=== PATIENT | female | born 1995 | race Caucasian/White ===

== ENCOUNTER 2021-06-17 16:01 | Inpatient (IN) | payer OTHER, SELFPAY ==
[2021-06-17] VITALS (12 sets, daily range): BP systolic 90–147; BP diastolic 55–81; PULSE 82–96; RESP 20; TEMP 36.6
--- OUTSIDE RECORDS SUMMARY | 2021-06-17 16:07 | XMS_ITS | Encounter Summary ---
:1995 Author Care Team Providers Name Role Phone Sonny Byrd MD Senior Instructor [phone] Reason for Visit return OB visit Assessment and Plan 1. Routine care ? streptococcus group B, cul ture, vaginal or rectal Discussion Note: None recorded.Patient educational handouts: No information available. Plan of Care Reminders Provider Appointments None recorded. ? ? Lab Streptococcus [facility], Culture, Vaginal [facility] ([facility] or Rectal Referral None recorded. ? ? Procedures None recorded. ? ? Surgeries None recorded. ? ? Imaging None recorded. ? ? Medications Name Start Date ? ? aspirin 81 mg tablet,delayed release ? Take 1 tablet every day by oral route. magnesium oxide 400 mg (241.3 mg magnesium) tablet ? TAKE 1 TABLET BY MOUTH EVERY DAY riboflavin (vitamin B2) 400 mg tablet ? Take 1 tablet every day by oral route. Notes: PNV; ASA Medications Administered None recorded. Vitals Weight Blood Pressure 342 lbs 122/71 mm[Hg] Results Lab Results Date Name Specimen Result Interpretation Description Value Range Status Address ? 05/21/2021 Streptococcus SOURCE NOT ? Strep Gp negative
--- OUTSIDE RECORDS SUMMARY | 2021-06-17 16:07 | XMS_ITS | Encounter Summary ---
:1995 Author Care Team Providers Name Role Phone Sonny Byrd MD Fisheries Manager [phone] Reason for Visit return OB visit Assessment and Plan 1. Routine care Discussion Note: None recorded.Patient educational handouts: No information available. Plan of Care Reminders Provider Appointments None ? ? recorded. Lab None ? ? recorded. Referral None ? ? recorded. Procedures None ? ? recorded. Surgeries None ? ? recorded. Imaging None ? ? recorded. Medications Name Start Date ? ? aspirin 81 mg tablet,delayed release ? Take 1 tablet every day by oral route. magnesium oxide 400 mg (241.3 mg magnesium) tablet ? TAKE 1 TABLET BY MOUTH EVERY DAY riboflavin (vitamin B2) 400 mg tablet ? Take 1 tablet every day by oral route. Notes: PNV; ASA Medications Administered None recorded. Vitals Height Weight Blood Pressure 5 ft 9 in 326 lbs 118/64 mm[Hg] Results Lab Results None recorded. Allergies Code Code System Name Reaction Severity Onset NKDA ? ? ? Problems Name Status Onset Date Source ?
--- OUTSIDE RECORDS SUMMARY | 2021-06-17 16:07 | XMS_ITS | Encounter Summary ---
:1995 Author Care Team Providers Name Role Phone Sonny Byrd MD Jewelry Facer [phone] Reason for Visit return OB visit Assessment [...] Weight Blood Pressure 5 ft 9 in 339 lbs 126/64 mm[Hg] Results Lab Results None recorded. Allergies Code Code System Name Reaction Severity Onset NKDA ? ? ? Problems Name Status Onset Date Source ?
--- OUTSIDE RECORDS SUMMARY | 2021-06-17 16:07 | XMS_ITS ---
:1995 Author Care Team Providers Name Role Phone LION KUHN MD [employer] Librarian [phone] Allergies Code Code System Name Reaction Severity Status Onset NKDA ? Medications Name Status Start Date Stop Date ? ? aspirin 81 mg tablet,delayed release Active ? Not available Take 1 tablet every day by oral route. cyclobenzaprine 10 mg tablet Completed ? 12/2020 TAKE 1 TABLET BY MOUTH EVERY 8 HOURS NEEDED FOR MUSCLE SPASM docusate sodium 100 mg capsule Completed ? 0 02/10/2021 Take 1 capsule every day by oral route. magnesium oxide 400 mg (241.3 mg magnesium) tablet Active ? Not available TAKE 1 TABLET BY MOUTH EVERY DAY meloxicam 7.5 mg tablet Completed ? 10/30/19 21 TAKE 1 TABLET BY MOUTH EVERY DAY riboflavin (vitamin B2) 400 mg tablet Active ? Not available Take 1 tablet every day by oral route. sulfamethoxazole 800 mg-trimethoprim Completed ? 10/29/2020 160 mg tablet Notes: PNV; ASA Problems Name Status Onset Date Source ? Active 12/02/2020 ? Shoulder Joint Pain Active ? ? Procedures Date Name Performed by ? 10/29/2020 [place], Obstetric, 1St Trimester [facility] (Imaging) [address] [place], [place] [address] (Work [address]) 01/06/2021 [place], Obstetric, Maternal [facility] (Imaging)
--- OUTSIDE RECORDS SUMMARY | 2021-06-17 16:07 | XMS_ITS | Encounter Summary ---
:1995 Author Care Team Providers Name Role Phone Sonny Byrd MD Coding Tech [phone] Reason for Visit return OB visit Assessment [...] Weight Blood Pressure 5 ft 9 in 336 lbs 114/62 mm[Hg] Results Lab Results None recorded. Allergies Code Code System Name Reaction Severity Onset NKDA ? ? ? Problems Name Status Onset Date Source ?
[2021-06-17 17:00] LABS: Basophils Percent Auto 0.4 % (0.2-1.2); Eosinophils Percent Auto 0.3 % (0-4.4); Hematocrit 34.1 % (37.0-47.0); Hemoglobin 11.6 g/dL (12.0-15.0); Immature Granulocyte Absolute 0.06 K/mm3 (0.00-0.031); Immature Granulocyte Percent A 0.7 % (0-0.5); Lymphocytes Absolute Auto 1.69 K/mm3 (0.9-3.2); Lymphocytes Percent Auto 18.4 % (18.3-44.2); Mean Corpuscular Hemoglobin 29.1 pg (26-34); Mean Corpuscular Volume 85.5 fl (80-100); Mean Platelet Volume 10.3 fl (7.4-10.4); Monocytes Absolute Auto 0.5 K/mm3 (0.1-0.6); Monocytes Percent Auto 5.7 % (2.6-8.5); Neutrophils Absolute Auto 6.9 K/mm3 (1.3-6.7); Neutrophils Percent Auto 74.5 % (45.5-73.1); Platelet Count Result 242 k/mm3 (150-375); Red Blood Count 3.99 M/mm3 (4.2-5.4); Red Cell Distribution Width 13.5 % (11.5-14.5); White Blood Count 9.2 K/mm3 (4.5-10.0)
--- NOTE | 2021-06-17 17:17 | LDADM ---
This patient, Cata Ho, was admitted to Labor/Delivery/Recovery 108 on 06/17/21 at 16:01. Plans for labor, pain management and were discussed with patient. Patient/family oriented to hospital policies and general routines including ID bracelet, bed and alarms, visiting hours, pain management, procedures, bathroom and other care routines, personal items, smoking policy, room service/diet and guest tray routines, security routines, and visiting hours. Patient/Family are encouraged to report perceived risks to care and to ask questions if they do not understand what they are told or what they should do. See OBIX for further documentation.
[2021-06-17] MEDS: DINOPROSTONE 10 MG VAG INSERT VAGINAL (17:32)
[2021-06-18] VITALS (109 sets, daily range): BP systolic 94–219; BP diastolic 41–182; PULSE 81–223; RESP 16; TEMP 36.6–39.4; O2SAT 99–100
[2021-06-18] MEDS: fentaNYL CITRATE INJ (*CRX) 100 MCG/2 ML VIAL 50 MCG IV PUSH (01:17)
[2021-06-18] MEDS: fentaNYL CITRATE INJ (*CRX) 100 MCG/2 ML VIAL IV PUSH ×2 (03:17→05:35)
[2021-06-18] MEDS: LACTATED RINGERS 1,000 ML 125 ML IV CONT ×2 (05:22→07:32)
[2021-06-18] MEDS: OXYTOCIN 30 UNITS/NS 500 ML 30 UNITS/500 ML BAG 6 UNITS IV CONT (05:23)
--- NOTE | 2021-06-18 09:05 | WPDHPUPDATE1 ---
History and Physical Update Update Date/Time: 06/18/21 09:05 History and Physical has been reviewed, including an updated exam of the patient. There are NO changes in the patient's condition. Risks, benefits, and alternatives have been discussed and questions answered. Patient agrees to proceed with procedure.
--- NOTE | 2021-06-18 09:05 | WPDOBADMIT ---
Obstetrics - Admit Note Admission Note: record reviewed. No pertinent additions to the history and/or any subsequent changes in the physical findings that are not consistent with the expected course of the were found. Additions to the history and/or subsequent changes in the physical findings follow. None.
--- NOTE | 2021-06-18 09:05 | PM.OBPRVD ---
OB - Delivery Note Procedure Route of delivery: Episiotomy description: None Laceration Description: Perineal - 2nd Degree Delivery repair: chromic Specimen: No Quantitative Blood Loss (ml): 550 Anesthesia type: Epidural Disposition: floor Narrative: Patient prepped in usual manner for this procedure. Maternal expulsive efforts readily delivered vertex and rest baby delivered without difficulty. Cord clamped and cut and the placenta delivered spontaneously. Uterus was well contracted. Second-degree laceration was noted with vaginal extension. This was approximated using 2 0 chromic at the apex of the vaginal tear in a running interlocking manner with good approximation of the vaginal tissue noted. Subcuticular of the perineal tissue with good approximation noted. There was no significant bleeding at this point seizure was considered terminated with immediate postoperative condition of mother and baby both excellent. [place] Baby Weeks of gestation at delivery: 39 gender: Female Weight (pounds): 8 Weight (ounces): 6 score one minute: 9 score five minutes: 9 AMG Delivery Billing Delivery Delivery: Delivery Charge
[2021-06-18 12:11] LABS: Rapid Plasma Reagin Non-Reactive (NonReactive)
[2021-06-18] MEDS: OXYTOCIN 30 UNITS/NS 500 ML 30 UNITS/500 ML BAG 125 UNITS IV CONT (15:21)
--- NOTE | 2021-06-18 19:10 | OBPPTRN ---
Patient transferred to post room #280 via wheelchair. Support person present. Oriented to unit, room, information board, rooming in, admission packet and security measures. Patient verbalizes understanding.
[2021-06-18] MEDS: IBUPROFEN 600 MG TABLET PO (21:09)
[2021-06-18] MEDS: DEXTROSE 5%/LACTATED RINGERS 1,000 ML 250 ML IV CONT (22:20)
[2021-06-18] MEDS: CLINDAMYCIN 900 MG/D5W 50 ML 900 MG/50 ML PIGGYBACK 50 MG IVPB (22:20)
[2021-06-18] MEDS: ACETAMINOPHEN 325 MG TABLET 650 MG PO (22:28)
[2021-06-18 22:39] LABS: Estimated CRCL calculation 150 ml/min; Estimated Glomerular Filt Rate > 60
[2021-06-18] MEDS: BENZOCAINE 20% AER SPR (*SP) 56 GM CAN 1 SPRAY TOPICAL (23:04)
[2021-06-18] MEDS: WITCH HAZEL 40 PADS 1 PAD TOPICAL (23:05)
[2021-06-19 00:20] VITALS: BP 131/69; PULSE 106; RESP 16; TEMP 37; O2SAT 98
[2021-06-19] MEDS: DEXTROSE 5%/LACTATED RINGERS 1,000 ML 125 ML IV CONT (04:15)
[2021-06-19 04:45] VITALS: BP 106/60; PULSE 99; RESP 16; TEMP 36.8; O2SAT 99
[2021-06-19] MEDS: IBUPROFEN 600 MG TABLET PO ×2 (05:12→17:44)
[2021-06-19 05:33] LABS: Hematocrit 22.7 % (37.0-47.0); Mean Corpuscular HGB Conc 30.8 g/dl (32-36); Mean Corpuscular Hemoglobin 29.3 pg (26-34); Mean Platelet Volume 10.5 fl (7.4-10.4); Platelet Count Result 105 k/mm3 (150-375); Red Blood Count 2.39 M/mm3 (4.2-5.4); Red Cell Distribution Width 14.3 % (11.5-14.5)
[2021-06-19] MEDS: CLINDAMYCIN 900 MG/D5W 50 ML 900 MG/50 ML PIGGYBACK 50 MG IVPB ×3 (05:46→22:05)
[2021-06-19 05:51] LABS: Estimated CRCL calculation 195 ml/min; Estimated Glomerular Filt Rate > 60
[2021-06-19 06:00] LABS: Hematocrit 28.7 % (37.0-47.0); Hemoglobin 9.8 g/dL (12.0-15.0); Mean Corpuscular HGB Conc 34.1 g/dl (32-36); Mean Corpuscular Hemoglobin 29.5 pg (26-34); Mean Corpuscular Volume 86.4 fl (80-100); Mean Platelet Volume 10.1 fl (7.4-10.4); Platelet Count Result 152 k/mm3 (150-375); Red Blood Count 3.32 M/mm3 (4.2-5.4); Red Cell Distribution Width 13.6 % (11.5-14.5); White Blood Count 6.7 K/mm3 (4.5-10.0)
[2021-06-19 06:15] LABS: Estimated CRCL calculation 150 ml/min; Estimated Glomerular Filt Rate > 60
--- NOTE | 2021-06-19 07:00 | PC.NURSE ---
PT introductions made and plan of care discussed per post , pain management, breast /bottle feeding, daily care activities and antibiotics PT received such instructions per one to one discussion, mom baby care guide and demonstrations this shift. PT and spouse both recipients of such instructions and no barriers to learning identified. PT verbalized understanding of such instructions.
[2021-06-19 07:45] VITALS: BP 115/63; PULSE 95; RESP 18; TEMP 36.8; O2SAT 98
--- NOTE | 2021-06-19 09:18 | PM.OBDSVD ---
DS: Admitting Diagnosis Discharge Date 06/20/2021 Admitting Diagnosis DS: Discharge Diagnosis Discharge Diagnosis (1) care and examination immediately after delivery: Code(s): Z39.0 - Encounter for care and examination of mother immediately after delivery Status: Acute (2) endometritis: Code(s): O86.12 - Endometritis following delivery Status: Acute Assessment and Plan: did well with antibiotics and white blood cell count is normalized. Also clinically she is stable. Will not be discharged on any oral antibiotics. OB - DS: Summary OB Procedures : None OB Procedures Intrapartum: Spontaneous Vag Delivery OB Procedures: : Antibiotics Time Spent with Patient Time attestation: Total time spent providing and/or coordinating discharge services: DS: Data Data Completed and Pending Labs on day of discharge: Labs from last 24 hours 06/19/21 06/19/21 06/19/21 05:56 05:56 05:19 WBC 6.7 RBC 3.32 L Hgb 9.8 L Hct 28.7 L MCV 86.4 D MCH 29.5 MCHC 34.1 RDW 13.6 Plt Count 152 MPV 10.1 Creatinine 0.80 0.60 L Estim Creat Clear Calc 150 195 Estimated GFR > 60 > 60 RPR 06/19/21 06/18/21 06/17/21 05:18 22:18 16:41 WBC 5.0 RBC 2.39 L Hgb 7.0 L D Hct 22.7 L MCV 95.0 D MCH 29.3 MCHC 30.8 L RDW 14.3 Plt Count 105 L D MPV 10.5 H Creatinine 0.80 Estim Creat Clear Calc 150 Estimated GFR > 60 RPR Non-reactive Discharge Plan Discharge Discharging Clinician: Sonny Byrd Patient Disposition: Home, Self-Care Activity: as tolerated Diet: as tolerated Patient Instructions: Antibiotic Form Stand Alone Forms: General Discharge Information Follow-up/Referrals: Sonny Byrd MD [Physician] - 3 Weeks Discharge Medications: New ibuprofen 600 mg Tablet 600 mg PO Q6H PRN (Reason: Cramping) Qty: 30 RF: 0 Continued PNV cmb#95-ferrous fumarate-FA [] 28 mg iron- 800 mcg Tablet 1 tablet PO DAILY RF: 0 Discontinued aspirin 81 mg Tablet 81 mg PO DAILY RF: 0 Date of admission: 06/17/21 16:01 Primary Care Provider: Reuben Haley Admitting Provider: Sonny Byrd Attending physician on admission: Sonny Byrd Condition: Stable
--- NOTE | 2021-06-19 09:30 | WPDANLDPN2 ---
Anes-Prog Note L&D Date/Time: 06/19/21 09:30 Comfortable throughout: labor and delivery Neuraxial method: epidural Epidural/Spinal procedure site: clean & non-tender Neuro status: Neuro function grossly intact. Cardiovascular status: normal Respiratory status: normal Airway patency: baseline Mental status: baseline Post-Op hydration status: normal Vital Signs: Last Vital Signs Temp 36.8 C 06/19/21 04:45 Pulse 99 06/19/21 04:45 Resp 16 06/19/21 04:45 BP 106/60 06/19/21 04:45 Pulse Ox 99 06/19/21 04:45 Pain score (VAS): 3 I/O: Intake & Output 06/18/21 06/19/21 06/19/21 23:59 07:59 15:59 Intake Total 550 1102.5 Output Total 900 Balance -350 1102.5 Post-procedural complaints: none Patient feedback: Patient satisfied with anesthetic care.
[2021-06-19] MEDS: POLYSACCHARIDE IRON COMPLEX 150 MG CAPSULE PO ×2 (09:36→17:44)
[2021-06-19] MEDS: MULTIVIT/MIN/PREN/FOL AC/IRON TABLET 1 TAB PO (09:36)
[2021-06-19] MEDS: TETANUS,DIPHTHERIA,AC PERTUSSIS ADULT (0.5 ML) BOOSTRIX IM (09:37)
[2021-06-19 10:30] VITALS: PULSE 104; RESP 18; O2SAT 100
[2021-06-19 12:04] VITALS: BP 130/73; PULSE 104; RESP 18; TEMP 36.4; O2SAT 100
--- NOTE | 2021-06-19 12:41 | PC.NURSE ---
0810 - Introductions were made and mother led the discussion of her desires to feeding her baby. Mom states she used the nipple shield and latch assist tool with no success. has been given formula supplement at 0800. Reviewed handwashing to prevent infection before and after taking care of her baby. Mother verbalizes she is unable to independently latch . Pt instructed to call out for the next feeding. Mother voiced understanding to feed when she sees feeding cues, 8-12 times in 24 hours approximately every 2-3 hours from the start of the last feeding or she has discomfort with nursing. Reported to primary RN. 1130 - Baby is back with mother after tests and assessments. Primary RN assisted skin to skin with mom. Reviewed positioning/alignment and mother manages baby well. Mom demonstrates understanding of hand expression and is unable to express human milk. Encouraged mother with infant to the right breast in football position using nipple to nose with no feeding cues visualized. When gapes mouth and cries the tongue is in the middle of the mouth. Reviewed effective latching with resources tool/handout/mom and baby guide. Infant was unable to latch. Mother is feeding as needed to meet requirements when infant is with her. Dad is actively involved with feedings. Mother has verbalized understanding watching for feeding cues for responsive feeding or how to stimulate infant to initiate from the start of the last feeding. Mother voiced understanding to feed when she sees feeding cues, 8-12 times in 24 hours approximately every 2-3 hours from the start of the last feeding or she has discomfort with nursing. Due to several attempts to stimulate to breastfeed without latching, dad will supplement . 1200 - Breast pump provided due to ineffective and mother has a desire to make human milk to bottle feed baby with. Reviewed information regarding pump care, hand washing, nipple care and pumping 8 times in 24 hours (1-2 at night) for 10-15 minutes. Discussed she may want to pump after feedings or between feedings. If after feeding, rest for 5-10 minutes. Get something to eat/drink, use the restroom, then pump. Reviewed stimulating milk production, collection and storage of breast milk. Encouraged mom to place infant skin to skin, breast massage and use hand expression and/or a breast pump in a relaxing atmosphere. Reviewed recording pumping schedule on the feeding sheet. Assessed for correct placement, flange size and fit before and during pumping. Mom has no discomfort. No human milk is expressed. Reinforced teaching with mom and baby guide as a resource and when to call a provider. Reported to primary RN.
[2021-06-19] MEDS: DOCUSATE SODIUM 100 MG CAPSULE PO (17:44)
[2021-06-19] MEDS: LANOLIN (LANSINOH) 7.5 GM CREAM 1 APPLIC TOPICAL (17:46)
[2021-06-19 19:31] VITALS: BP 121/62; PULSE 95; RESP 16; TEMP 36.6
--- NOTE | 2021-06-20 07:00 | PC.NURSE ---
PT introductions made and plan of care discussed per post , pain management, breast /bottle feeding, daily care activities and pending discharge to home. PT received such instructions per one to one discussion, mom baby care guide and demonstrations this shift. PT and spouse both recipients of such instructions and no barriers to learning identified. PT verbalized understanding of such instructions.
[2021-06-20 07:55] VITALS: BP 110/72; PULSE 87; RESP 16; TEMP 36.5; O2SAT 98
--- NOTE | 2021-06-20 10:25 | PC.NURSE ---
0825 - Reintroductions were made and mother led the conversation with regards to her experience and plan to feed her baby. Mom states that latch earlier in the morning but did not maintain latch. Reviewed effective latch, suck/swallow bursts, rocking jaw motion and there is to be no pain with latch. Mom encouraged to call for assistance to work on effectively latching before she goes home and she states she will work with infant on her own. Mom demonstrated she stretches her nipples before working with the baby and they have supplemented with formula as well. Reminded parents to use good handwashing to prevent infection. Infant has had adequate feedings in the past 24 hours and meets the outcomes for weight, output and jaundice. Mother states she feels confident to continue feeding her at home. Reviewed production of human milk (frequency of pumping), transition of milk, signs of adequate intake and engorgement prevention/relief and when to call the infant care provider using the mom and baby guide. Reviewed community resources and outpatient services as listed in the mom and baby guide/[facility] website. Reinforced watching for feeding cues with responsive feeding and how to stimulate infant to initiate feeding three hours from the start of the last feeding. Mother voiced understanding of information shared. Reported to primary RN.
[2021-06-20] MEDS: MULTIVIT/MIN/PREN/FOL AC/IRON TABLET 1 TAB PO (10:37)
[2021-06-20 10:38] VITALS: PULSE 87; RESP 16; O2SAT 98
[2021-06-20] MEDS: DOCUSATE SODIUM 100 MG CAPSULE PO (10:38)
[2021-06-20] MEDS: POLYSACCHARIDE IRON COMPLEX 150 MG CAPSULE PO (10:38)
[2021-06-20] MEDS: IBUPROFEN 600 MG TABLET PO (10:38)
--- NOTE | 2021-06-20 10:40 | PC.NURSE ---
PT received discharge instructions per protocol and verbalized understanding of such care
--- NOTE | 2021-06-20 11:42 | PC.NURSE ---
PT discharged to home ambulatory accompanied by spouse and and walked to waiting car. Follow up appts confirmed
[2021-06-21 08:47] VITALS: BP 126/69; PULSE 80; RESP 20; TEMP 36.8; O2SAT 99
--- NOTE | 2021-06-23 10:04 | PM.OBDSVD ---
DS: Admitting Diagnosis Discharge Date 06/20/21 Admitting Diagnosis OB - DS: Summary OB Procedures : None OB Procedures Intrapartum: Spontaneous Vag Delivery OB Procedures: : None Time Spent with Patient Time attestation: Total time spent providing and/or coordinating discharge services: Discharge Plan Discharge Discharging Clinician: Sonny Byrd Patient Disposition: Home, Self-Care Activity: as tolerated Diet: as tolerated Discharge Instructions: Education: Mom and Baby Guide Given to: Mother Follow-Up: Call your delivering provider's office for an appointment to be seen in: 3 weeks Mom and baby should come to the [facility] for the follow-up appointment. Appointment Date/Time: June 21, 2021 at 9:00 am What to expect at your follow-up visit: Blood Pressure Check Call [phone] if you are unable to keep your appointment time. BREAST CARE: * Wear a snug supportive bra. * For engorgement discomfort: Breast Feeding: * Apply warm moist washcloths * Express milk as needed to relieve engorgement * Wear loose clothing Bottle Feeding: * May apply ice packs * For sore nipples: * Identify correct latch-on * Apply warm moist washcloths before and after nursing * Air dry nipples after nursing * May apply Lansinoh cream to nipples PERINEAL CARE: * Until bleeding stops, use your kostas bottle after urinating * Change your pad frequently throughout the day * You may take sitz baths several times a day (fill your bathtub with warm water and soak for 20 minutes.) Do NOT bathe in the water * No tub baths until seen by your physician - You may shower ACTIVITY: * Rest as much as possible. * Do not exercise or lift anything heavier than your baby (such as laundry or other children.) * Avoid stairs or driving as much as possible. * Do not put anything into the vagina. No douching, tampons, or sexual activity until seen by physician. NOTIFY PHYSICIAN IF YOU HAVE ANY QUESTIONS OR IF ANY OF THE FOLLOWING SYMPTOMS OCCUR: * If your perineum becomes red, swollen, or more painful than what you have experienced in the hospital. * If your vaginal bleeding becomes foul smelling. * If your vaginal bleeding becomes more heavy than a period or if your bleeding changes from pink to bright red. However, you may pass an occasional walnut-sized clot once or twice for the first week . * If you experience a sharp, shooting pain in you calves. * If you discover a hard, reddened area on your breast or if you experience flu-like symptoms. * If you have a fever of 100.4 or greater DIET: * Eat regular, well-balanced meals. * Drink plenty of fluids daily. If , drink to thirst. Patient Instructions: Antibiotic Form Stand Alone Forms: General Discharge Information Follow-up/Referrals: Sonny Bryd MD [Physician] - 3 Weeks Discharge Medications: New ibuprofen 600 mg Tablet 600 mg PO Q6H PRN (Reason: Cramping) Qty: 30 RF: 0 Continued PNV cmb#95-ferrous fumarate-FA [] 28 mg iron- 800 mcg Tablet 1 tablet PO DAILY RF: 0 Discontinued aspirin 81 mg Tablet 81 mg PO DAILY RF: 0 Date of admission: 06/17/21 16:01 Primary Care Provider: Reuben Haley Admitting Provider: Sonny Byrd Attending physician on admission: Sonny Byrd Condition: Stable
== END 2021-06-20 11:42 | disposition home or self-care (01) | DRG 560 ==
LOC: ANHLDR 06-18 12:15 → ANHOB2 06-18 21:44
PROVIDERS: Admitting Provider Obstetrics & Gynecology; PCP Pediatrics; Visit Provider Obstetrics & Gynecology
DX: O70.1 Second degree perineal laceration during delivery (principal); Z3A.39 39 weeks gestation of pregnancy; Z37.0 Single live birth; O86.12 Endometritis following delivery
CPT/HCPCS: 36415; 82565; 85025; 85027; 86592; 86850; 86900; 86901; 90715; A9270; J1580; J2590; J2795; J3010; J7120; J7121

== ENCOUNTER 2023-06-14 10:00 | Emergency (ER) | payer OTHER, SELFPAY ==
[2023-06-14] VITALS (23 sets, daily range): BP systolic 71–151; BP diastolic 58–111; PULSE 67–87; RESP 9–24; TEMP 36.9; O2SAT 97–100
--- NOTE | ~2023-06-14 | XR_ITS ---
XR ankle RT min 3V 06/14/2023 11:28 Indication: Post reduction. Procedure: 3 views right ankle Comparison: 06/14/2023 Findings: There is a comminuted distal fibular metadiaphyseal fracture with improved angulation. Ther e is persistent posterior displacement approximately two thirds bone width. Interval partial reductio n of the tibia with respect to the talus. There is a fracture involving the superior margin of the ta anika, best seen on the lateral view. There is widening of the medial ankle mortise. Impression: 1: Comminuted displaced distal fibular metadiaphyseal fracture with persistent posterior displacement . 2: Improved alignment of tibiotalar joint with avulsion fracture superior margin of the talus best s een on the lateral view Reviewed, dictated and finalized at [facility]. W FEEDER Impression: 1: Comminuted displaced distal fibular metadiaphyseal fracture with persistent posterior displacement. 2: Improved alignment of tibiotalar joint with avulsion fracture superior antonio in of the talus best seen on the lateral view
--- NOTE | ~2023-06-14 | XR_ITS ---
Right ankle Technique: AP, oblique, and lateral views were obtained. Clinical History: Dislocation Findings: There is an oblique fracture of the distal third of the fibular shaft, with significant pos terior angulation of the distal fracture fragment, and mild displacement. There is complete anterior and medial dislocation of the distal tibia with respect to the talar dome. Questionable mild irregula rity of the distal tibia, and a subtle nondisplaced fracture is not excluded. There is diffuse soft t issue swelling. Impression: Acute, oblique fracture of the distal to the fibular shaft with posterior angulation and mild displac ing, as detailed above. Anteromedial dislocation of the distal tibia with respect to the talar dome. Mild irregularity of the distal tibial plafond. Subtle nondisplaced fracture is a consideration, poss ibly involving the posterior malleolus. Reviewed, dictated and finalized at [facility]. OR TAX MANAGER Impression: Acute, oblique fracture of the distal to the fibular shaft with posterior angul ation and mild displacing, as detailed above. Anteromedial dislocation of the distal tibia with respect to the talar dome. Mild irregularity of the distal tibial plafond. Subtle nondisplaced fracture is a consideration, possibly involving the posterior malleolus.
[2023-06-14] MEDS: ONDANSETRON INJ 4 MG/2 ML VIAL IV PUSH (10:17)
[2023-06-14] MEDS: HYDROmorphone HCL INJ (*CRX) 1 MG/ML SYR IV PUSH (10:18)
[2023-06-14] MEDS: PROPOFOL IV EMULSION 200 MG/20 ML VIAL 60 MG IV PUSH (11:06)
--- NOTE | 2023-06-14 11:18 | ED.LOWEXIN ---
HPI - Extremity Injury (Lower) General Chief Complaint: Extremity Injury, Lower <Arik Asif APRN - Last Filed: 06/14/23 16:20> Stated Complaint: ankle pain/fall <Arik Asif APRN - Last Filed: 06/14/23 16:20> Time Seen by Provider: 06/14/23 10:11 <Arik Asif APRN - Last Filed: 06/14/23 16:20> Source: patient <Arik Asif APRN - Last Filed: 06/14/23 16:20> Mode of arrival: ambulatory <Arik Asif APRN - Last Filed: 06/14/23 16:20> Limitations: no limitations <Arik Asif APRN - Last Filed: 06/14/23 16:20> History of Present Illness HPI Narrative: Lupe is a 27-year-old female patient presenting to the ER today with complaints of a right ankle injury. States she fell on the ice this morning. Has obvious dislocation/deformity of the right ankle. Patient was brought in by EMS and EMS gave her morphine IV. <Arik Asif APRN - Last Filed: 06/14/23 16:20> Related Data Home Medications: Home Medications Medication Instructions Recorded Confirmed vit no.95-ferrous 1 tablet PO DAILY 05/30/21 07/08/21 fumarate 28 mg-folic acid 800 mcg tablet () <Arik Asif APRN - Last Filed: 06/14/23 16:20> Allergies/Adverse Reactions: Allergies Allergy/AdvReac Type Severity Reaction Status Date / Time No Known Allergies Allergy Verified 06/14/23 10:15 <Arik Asif APRN - Last Filed: 06/14/23 16:20> Review of Systems Review of Systems: Pertinent positives per HPI. Patient denies any fever, chills, rash, headache, visual changes, dizziness, cough, runny nose, sore throat, shortness of breath, chest pain, palpitations, nausea, vomiting, diarrhea, constipation, abdominal pain, or any urinary issues. <Arik Asif APRN - Last Filed: 06/14/23 16:20> PMFSH Past Medical History Medical History: Medical History Anxiety <Arik Asif APRN - Last Filed: 06/14/23 16:20> Family History Family History: Family History Grandparent Diabetes mellitus paternal grandmother Other No pertinent family history <Arik Asif APRN - Last Filed: 06/14/23 16:20> Social History Social History: Social History Smoking packs per day: 0 Smoking cigarettes per day: 0.0 Smoking status: Former smoker Alcohol intake: never Substance use: never Substance use type: marijuana Gender identity (if verbalized by the patient): Female Sexual Orientation (if Verbalized by the Patient): Straight or Heterosexual Spiritual care concerns: No <Arik Asif APRN - Last Filed: 06/14/23 16:20> Comments At the time of my signature, I reviewed and agree with the nursing past medical, surgical, social, and family history. There is no relevant family history pertinent to the patient complaint. <Arik Asif APRN - Last Filed: 06/14/23 16:20> Exam Narrative: General: Well-developed, well nourished, in no apparent distress Head: Normocephalic, atraumatic. Cardio: Regular rate and rhythm, s1 and s2 normal, no murmur appreciated. Resp: Clear to auscultation bilaterally, no rhonchi, rales, wheezing or rubs. Musculoskeletal: Obvious ankle deformity, tender to palpation over the ankle joint, no ROM due to dislocation, peripheral pulse strong, no edema, no cyanosis. <Arik Asif APRN - Last Filed: 06/14/23 16:20> Course Course Emergency Course: Portions of this record may have been created with voice recognition software. <Arik Asif APRN - Last Filed: 06/14/23 16:20> CHIEF HYDROELECTRIC STATION OPERATOR/PA Physician Supervision For this patient encounter, I reviewed the CHIEF HYDROELECTRIC STATION OPERATOR or PA documentation, treatment plan, and medical decision making; and I had [id number] ti
--- NOTE | 2023-06-14 11:56 | PC.NURSE ---
1105: Time out performed, Dr coleman at bedside. all equip needed at bedside 1106: 80 mg propofol given by Dr. Coleman. 1107: 40 mg propofol given by Dr. Coleman 1108: 50 mg propofol given by Dr. Coleman 1109: 30 mg propofol given by Dr. Coleman 1110: Reduction complete, splint applied
== END 2023-06-14 12:56 | disposition home or self-care (01) ==
PROVIDERS: Emergency Provider Nurse Practitioner Family; PCP Nurse Practitioner Family
DX: S82.831A Other fracture of upper and lower end of right fibula, initial encounter for closed fracture (principal); S92.191A Other fracture of right talus, initial encounter for closed fracture; W00.0XXA Fall on same level due to ice and snow, initial encounter
CPT/HCPCS: 27788; 27825; 73600; 73610; 96374; 96375; 99285; J1170; J2405; J2704

== ENCOUNTER 2023-06-24 01:31 | Day surgery (SDC) | payer OTHER, SELFPAY ==
[2023-06-18 14:55] VITALS: BMI 42.9
--- NOTE | 2023-06-18 14:59 | PC.NURSE ---
Report to the Outpatient Waiting Room, entrance under the green pavilion located off [facility], at time 0730 on date 06/24/23. Planned Procedure Time: 0930. Time changes happen often and if your time is changed the preop area will call you the afternoon before. - You and your visitor will be asked to self-screen and do not enter if you have any COVID symptoms. - A mask is optional within the hospital at this time. Patients may have clear liquids (water, carbonated beverages, clear teas, apple juice) until 3 hours prior to surgery with a maximum of 20 ounces. - No food from midnight until time of surgery Take the following medications with a SIP of water the morning of surgery: PAIN PILL IF NEEDED DO NOT STOP ANY OF YOUR OTHER PRESCRIPTION MEDICATIONS PRIOR TO SURGERY ?EXCEPT THE FOLLOWING Medications to discontinue per physician: N/A Date to take last dose: N/A Please no make-up, nail maltese, hairspray, perfume, deodorant, or body powder the day of surgery. No jewelry (including any body piercings) or valuables the day of surgery, leave them at home. Please take a shower or bath the night before, or the morning of, surgery with an antibacterial soap. Wear comfortable, loose fitting clothing. - Jewelry must be removed prior to entering the operating room. Rings and piercings that are not removed may be cut off. - The hospital will not accept responsibility for valuables. - Please leave all valuables, including medications, at home the day of surgery. If you are going home after surgery, a licensed spotter driver must drive you home. - NO public transportation without another adult if you receive anesthesia. - We recommend that an adult stay with you for 24 hours following discharge. - We also recommend that you do not drive, make important decision, drink alcoholic beverages, or take any drugs that were not prescribed by your health care provider for at least 24 hours after your discharge time. Follow any additional instructions given to you from your surgeon. If you or anyone in your household have experienced Covid symptoms in the past week, please notify your surgeon or the nurse liaison at the phone number below for possible testing. Telephone instructions given to PT - JOANIE MORATAYA and asked if any additional questions and then verbalized understanding. Patient advised to call surgeon office or pre surgery nurse liaison [phone] if any additional questions.
[2023-06-24] VITALS (11 sets, daily range): BP systolic 118–150; BP diastolic 72–98; PULSE 81–98; RESP 12–16; TEMP 36.4–36.9; O2SAT 90–100
--- NOTE | ~2023-06-24 | XR_ITS ---
XR surgery orthopedic DATE: 06/24/2023 14:14 INDICATION: ORIF right ankle TECHNIQUE: 6 spot C-arm images of the right ankle 99.5 seconds fluoroscopy time 2.26 mGy COMPARISON: 06/18/2023 right ankle FINDINGS: An intramedullary swati is placed in the lateral malleolus, extending into the mid fibular sh aft, with virtually anatomic position of the major proximal and distal fracture fragments of the comm inuted distal fibular shaft fracture. There are 2 proximal 3 screws extending through the distal tibial metaphysis, and 2 smaller through s crews through the lateral malleolus. The ankle mortise is restored. IMPRESSION: ORIF comminuted distal fibular shaft fracture and lateral tibiotalar subluxation Reviewed, dictated and finalized at [facility]. Reviewed, dictated and finalized at location [facility]. ICES ACCOUNT MANAGER IMPRESSION: ORIF comminuted distal fibular shaft fracture and lateral tibiotala r subluxation
[2023-06-24] MEDS: LACTATED RINGERS 1,000 ML 30 ML IV CONT ×2 (08:22→11:55)
[2023-06-24] MEDS: ACETAMINOPHEN 500 MG TABLET 1000 MG PO (08:23)
[2023-06-24] MEDS: KETOROLAC 15 MG/ML VIAL (*BKC) IV PUSH (08:24)
--- NOTE | 2023-06-24 08:50 | P.PNAN_ITS ---
Anes - Initial Pre Proc Eval Procedure: Operation Date: 06/24/23 09:30 Proposed Procedures p Open Reduction Internal Fixation Right Ankle Fracture and Syndesmosis - Diego Matthew MD Date/Time: 06/24/23 08:50 Surgeon: Diego Matthew MD Pre Op Diagnosis: right ankle fx Patient Data Age: 27 Gender: F Height: 1.77 m Weight: 133.8 kg Last Vital Signs Temp 97.5 F L 06/24/23 08:04 Pulse 85 06/24/23 08:04 Resp 16 06/24/23 08:04 BP 132/78 06/24/23 08:04 Pulse Ox 90 06/24/23 08:04 Allergies Allergy/AdvReac Type Severity Reaction Status Date / Time No Known Allergies Allergy Verified 06/24/23 07:47 Home Medications Medication Instructions Recorded Confirmed Type naloxone 4 mg/actuation nasal 4 mg intranasal Q2M PRN opioid 06/14/23 06/18/23 Rx spray (Narcan) overdose #2 ea hydrocodone 7.5 mg-acetaminophen 1 tablet PO Q6H PRN pain #20 tabs 06/18/23 06/24/23 Rx 325 mg tablet Patient hx anesthesia problems: none Family hx anesthesia problems: none Results Review: All pre-operative results and documents have been reviewed as part of the pre- operative evaluation. [facility] Past Medical History Medical History (Updated 06/18/23 @ 14:19 by Diego Matthew MD) Acute disruption of syndesmosis of ankle joint Anxiety Family History Family History Grandparent Diabetes mellitus paternal grandmother Other No pertinent family history Social History Social History Smoking packs per day: 0 Smoking cigarettes per day: 0.0 Smoking status: Current some day smoker Tobacco type: cigarettes Alcohol intake: current Alcohol use details: 2/MONTH Substance use: current Substance use type: marijuana Living arrangements: with family Gender identity (if verbalized by the patient): Female Sexual Orientation (if Verbalized by the Patient): Straight or Heterosexual Spiritual care concerns: No Anes - Eval Final PreProcedure Day of Procedure 06/24/23 08:50 Patient weight: morbidly obese Heart: regular rate and rhythm Lungs: clear to auscultation Airway: Mallampati scale class II Neurological: alert and oriented Last oral intake: >/= 8 hours ASA classification: III Emergent: no Anesthetic plan: proceed Anesthesia type and monitoring: general LMA and standard monitoring Results Review: All pre-operative results and documents have been reviewed as part of the pre- operative evaluation. Informed Consent: The patient's anesthetic plan and its attendant risks and benefits were discussed with the patient/family/POA. Questions were solicited and answers provided to the satisfaction of the patient/family/POA.
--- NOTE | 2023-06-24 09:32 | WPDHPUPDATE1 ---
History and Physical Update Update Date/Time: 06/24/23 09:32 History and Physical has been reviewed, including an updated exam of the patient. There are NO changes in the patient's condition. Risks, benefits, and alternatives have been discussed and questions answered. Patient agrees to proceed with procedure.
[2023-06-24] MEDS: ceFAZolin 3 GM/D5W 100 ML 100 ML IVPB (09:40)
[2023-06-24] MEDS: BUPIVACAINE/EPINEPHRINE 0.5% 30 ML VIAL INFILTRATE (10:01)
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
[2023-06-24] MEDS: fentaNYL CITRATE INJ (*CRX) 100 MCG/2 ML VIAL 25 MCG IV PUSH ×8 (12:17→12:43)
[2023-06-24] MEDS: HYDROmorphone HCL INJ (*CRX) 1 MG/ML SYR 0.5 MG IV PUSH ×3 (12:53→13:29)
[2023-06-24] MEDS: ONDANSETRON INJ 4 MG/2 ML VIAL IV PUSH (13:29)
== END 2023-06-24 14:55 | disposition home or self-care (01) ==
PROVIDERS: PCP Nurse Practitioner Family; Visit Provider Orthopaedic Surgery
PROC: (CPT 27829; principal; 2023-06-24 09:30)
DX: S89.391A Other physeal fracture of lower end of right fibula, initial encounter for closed fracture (principal); S93.431A Sprain of tibiofibular ligament of right ankle, initial encounter; W00.0XXA Fall on same level due to ice and snow, initial encounter; F17.210 Nicotine dependence, cigarettes, uncomplicated; F12.90 Cannabis use, unspecified, uncomplicated; E66.01 Morbid (severe) obesity due to excess calories; Z68.41 Body mass index [BMI] 40.0-44.9, adult
CPT/HCPCS: 27829; 27792; 99199; A9270; C1713; J0690; J1100; J1170; J1885; J2250; J2405; J2704; J3010; J7120

== ENCOUNTER 2023-10-12 11:34 | Outpatient (CLI) | payer OTHER, SELFPAY ==
--- NOTE | ~2023-10-12 | CT_ITS ---
EXAMINATION: CT ankle RT wo con DATE: 10/12/2023 11:51 INDICATION: Sprain of tibiofibular ligament TECHNIQUE: High resolution computed tomography (CT) of the right ankle was performed without intraven ous contrast. Additional sagittal and coronal reconstructions were performed. Automated exposure cont rol and iterative reconstruction technique were employed. The dose-length product was 231.50 mGy-cm. COMPARISON: None FINDINGS: Internal fixation of a mildly comminuted metadiaphyseal fracture of the distal right fibula with retr ograde intramedullary swati. There are a pair of distal interlocking screws at the lateral malleolus an d a couple longer interlocking syndesmotic screws which extend between the metaphyseal regions of the fibula and distal tibia. The fracture is healing in near-anatomic alignment with regions of solidly bridging callus formation although although there is also some residual lucency along significant por tions of the fracture planes. There are fractures of the syndesmotic screws from the more distal with in the tibial metaphysis and the more proximal within the distal fibula. There there are couple mamadou meter of residual widening of the medial clear space and similar degree of persistent widening of the distal tibiofibular syndesmosis. Tiny metallic density and a couple tiny round lucencies at the dist al tip of the medial malleolus suggesting an anchor site for possible deltoid ligament repair. There is a small fracture fragment at the posterior aspect of the distal tibiofibular articulation. There i s also a small nonunited likely avulsion fracture fragment located along the likely arising from the anterior margin of the talar dome where there is a corresponding shallow corticated concavity. No oth er fractures identified. 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 Small ankle joint effusion at the anterior recess of the joint space. There is spo tty diffuse osteopenia likely related to disuse. IMPRESSION: 1. Healing mildly comminuted internally fixed distal metadiaphyseal fracture of the right fibula. 2. Fracture of a pair of syndesmotic screws extending between the distal tibial and fibular metaphyse s. 3. 2 mm of widening of the distal tibiofibular syndesmosis as well as of the medial clear space with postoperative change of likely deltoid ligament repair with suture anchors at the distal tip of the m edial malleolus. 4. Small chronic nonunited likely avulsion fracture fragment along the anterior margin of the talar d ome. Reviewed, dictated and finalized at [facility]. IMPRESSION: 1. Healing mildly comminuted internally fixed distal metadiaphyseal fracture of the right fibula. 2. Fracture of a pair of syndesmotic screws extending between the distal tibial and fibular metaphyses. 3. 2 mm of widening of the distal tibiofibular syndesmosis as well as of the me dial clear space with postoperative change of likely deltoid ligament repair wi th suture anchors at the distal tip of the medial malleolus. 4. Small chronic nonunited likely avulsion fracture fragment along the anterior margin of the talar dome.
== END 2023-10-12 11:35 ==
LOC: MICIMG 11:37
PROVIDERS: PCP Orthopaedic Surgery; Visit Provider Orthopaedic Surgery
DX: S93.439A Sprain of tibiofibular ligament of unspecified ankle, initial encounter (principal); X58.XXXA Exposure to other specified factors, initial encounter
CPT/HCPCS: 73700

== ENCOUNTER 2023-11-11 00:33 | Day surgery (SDC) | payer OTHER, SELFPAY ==
[2023-11-01 12:46] VITALS: BMI 45.6
--- NOTE | 2023-11-01 12:57 | PC.NURSE ---
Report to the Outpatient Waiting Room, entrance under the green pavilion located off [facility], at time 10:00AM on date 11-11-23. Planned Procedure Time: 12:00PM. Time changes happen often and if your time is changed the preop area will call you the afternoon before. - You and your visitor will be asked to self-screen and do not enter if you have any COVID symptoms. - A mask is optional within the hospital at this time. Patients may have clear liquids (water, carbonated beverages, clear teas, apple juice) until 3 hours prior to surgery (09:00AM) with a maximum of 20 ounces. - No food from midnight until time of surgery Take the following medications with a SIP of water the morning of surgery: N/A DO NOT STOP ANY OF YOUR OTHER PRESCRIPTION MEDICATIONS PRIOR TO SURGERY ?EXCEPT THE FOLLOWING Medications to discontinue per physician IBUPROFEN Date to take last dose 11-04-23 Please no make-up, nail kyrgyz, hairspray, perfume, deodorant, or body powder the day of surgery. No jewelry (including any body piercings) or valuables the day of surgery, leave them at home. Please take a shower or bath the night before, or the morning of, surgery with an antibacterial soap. Wear comfortable, loose fitting clothing. - Jewelry must be removed prior to entering the operating room. Rings and piercings that are not removed may be cut off. - The hospital will not accept responsibility for valuables. - Please leave all valuables, including medications, at home the day of surgery. If you are going home after surgery, a licensed driver messenger must drive you home. - NO public transportation without another adult if you receive anesthesia. - We recommend that an adult stay with you for 24 hours following discharge. - We also recommend that you do not drive, make important decision, drink alcoholic beverages, or take any drugs that were not prescribed by your health care provider for at least 24 hours after your discharge time. Follow any additional instructions given to you from your surgeon. If you or anyone in your household have experienced Covid symptoms in the past week, please notify your surgeon or the nurse liaison at the phone number below for possible testing. Telephone instructions given to PATIENT and asked if any additional questions and then verbalized understanding. Patient advised to call surgeon office or pre surgery nurse liaison [phone] if any additional questions.
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
--- NOTE | 2023-11-10 13:49 | WPDANESEPPF ---
Anes - Initial Pre Proc Eval Procedure: Operation Date: 11/11/23 11:00 Proposed Procedures p Right Ankle Hardware Removal, - Diego Matthew MD s Reconstruction of Malunion, Revision Syndesmosis - Diego Matthew MD Date/Time: 11/10/23 13:49 Surgeon: Diego Matthew MD Pre Op Diagnosis: right ankle fracture malunion, hardware failure Patient Data Age: 28 Gender: F Height: 1.75 m Weight: 140 kg Allergies Allergy/AdvReac Type Severity Reaction Status Date / Time No Known Allergies Allergy Verified 11/11/23 09:09 Home Medications Medication Instructions Recorded Confirmed Type ibuprofen 800 mg tablet 800 mg PO TID PRN pain #30 tabs 06/24/23 11/11/23 Rx Patient hx anesthesia problems: none Family hx anesthesia problems: none Results Review: All pre-operative results and documents have been reviewed as part of the pre-operative evaluation. [facility] Past Medical History Medical History (Updated 11/10/23 @ 13:49 by Otis Perry DO) Acute disruption of syndesmosis of ankle joint Anxiety Closed fracture of right fibula with malunion Depression Failed orthopedic implant Pre-diabetes Family History Family History Grandparent Diabetes mellitus paternal grandmother Other No pertinent family history Social History Social History Social History: caffeine use Smoking packs per day: 0 Smoking cigarettes per day: 0.0 Years smoked: 10 Smoking pack-years: 0.00 Smoking status: Current some day smoker Tobacco type: cigarettes Second hand tobacco smoke exposure: No Alcohol intake: current Drinks per week: 3 Alcohol use details: 6/MONTH Substance use: current Substance use type: marijuana Last use: 10-31-23 Living arrangements: with family Occupation/Education: occupation Additional occupation/education comments: [employer] Gender identity (if verbalized by the patient): Female Sexual Orientation (if Verbalized by the Patient): Straight or Heterosexual Spiritual care concerns: No Anes - Eval Final PreProcedure Day of Procedure Patient weight: morbidly obese Heart: regular rate and rhythm Lungs: clear to auscultation Airway: Mallampati scale class II Neurological: alert and oriented Last oral intake: >/= 8 hours ASA classification: III Emergent: no Anesthetic plan: proceed Anesthesia type and monitoring: general LMA and standard monitoring
[2023-11-11] VITALS (8 sets, daily range): BP systolic 119–146; BP diastolic 74–102; PULSE 82–100; RESP 12–18; TEMP 36.1–36.7; O2SAT 97–100
--- NOTE | ~2023-11-11 | XR_ITS ---
EXAMINATION: XR surgery orthopedic DATE: 11/11/2023 14:32 INDICATION: Right ankle orthopedic instrumentation removal TECHNIQUE: 8 fluoroscopic images of the right ankle were obtained during procedure performed by Dr. Erica south. Radiologist was not present for the imaging or procedure. The amount of fluoroscopy time used during this procedure was 2.8 minutes. COMPARISON: CT dated 10/12/2023 FINDINGS: Initial image demonstrates tissue retractors projecting along the lateral aspect of the ankle. The in tramedullary swati, the 2 distal interlocking screws and heads of the 2 syndesmotic screws have been re moved. The residual distal aspect of the 2 syndesmotic screws remain at the distal tibia. There is pe rsistent widening of the medial clear space. Screw fragments have been removed on the subsequent imag es and the fibular fixations been revised with a lateral plate and multiple screws including 3 new in [address]fragmentary screws. An osteotomy has also been performed along the healing fracture plane with rg cement of some bone graft material. Alignment appears near-anatomic with a now congruent ankle mortis e. A small crescentic bone fragment initially seen along the anterior margin of the talar dome appear s been resected with minimal postoperative gas seen at the site of the fragment on the frontal and la teral image. IMPRESSION: 1. Fluoroscopy utilized during revision of a failed distal fibular internal fixation including syndes motic fixation. See procedure note for further detail. Reviewed, dictated and finalized at location B. IMPRESSION: 1. Fluoroscopy utilized during revision of a failed distal fibular internal fix ation including syndesmotic fixation. See procedure note for further detail.
--- NOTE | 2023-11-11 08:40 | WPDHPUPDATE1 ---
History and Physical Update Update Date/Time: 11/11/23 08:40 History and Physical has been reviewed, including an updated exam of the patient. There are NO changes in the patient's condition. Risks, benefits, and alternatives have been discussed and questions answered. Patient agrees to proceed with procedure.
[2023-11-11] MEDS: ACETAMINOPHEN 500 MG TABLET 1000 MG PO (09:29)
[2023-11-11] MEDS: KETOROLAC 15 MG/ML VIAL (*BKC) IV PUSH (09:29)
--- NOTE | 2023-11-11 10:40 | W.PM.PROC2 ---
Procedure Note - Detailed Date of Procedure 11/11/23 Pre-op Diagnosis right ankle fracture malunion, hardware failure, Syndesmosis disruption Post-op Diagnosis Same Procedure Performed right ankle fibula fracture malunion reconstruction, open reduction internal fixation syndesmosis, removal hardware Surgeon Diego Matthew MD Tight Barrel Inspector 1st social and human services assistant Anesthesia General Indications 28-year-old who sustained a right ankle fracture dislocation in May 2023. She underwent open reduction internal fixation. Complicated by malunion, loss of reduction of the syndesmosis and the ankle mortise alignment and noted to have failure of the hardware with fracture of the syndesmosis screws. Continues to have pain and swelling right ankle with weight-bearing. At risk for further traumatic degenerative changes. Presents for operative treatment. Description of Procedure After informed consent, the operative extremity was marked in the preoperative holding area. Patient received intravenous antibiotics. Patient was then taken to the operating room and underwent general anesthesia by the anesthesia team. They were positioned supine on the operating room table. A time-out was performed confirming the patient, site of the surgery, operative plan. right Lower extremity then prepped and draped in the usual sterile surgical fashion using ChloraPrep skin solution. Foot and ankle exsanguinated and a thigh tourniquet inflated to 250 mmHg. Longitudinal incision made over the lateral ankle distal fibula with a 15 blade knife. Hemostasis controlled with electrocautery. Full-thickness soft tissue flaps developed and the fascia was incised in line with the skin incision. lateral fibula exposed. We began with removal of the hardware. There were 2 distal locking screws in the fibular nail which were removed. 2 syndesmosis screw heads which had fractured were removed. The fibular intramedullary nail was identified at the distal fibula and the retrieval device was inserted. Fibula was. Care was then taken remove the broken pieces syndesmosis screws from tibia. Osteotome was used to loosen the bone around broken screws which were then grasped and removed. The screw holes in the tibia were irrigated with saline repaired with bone graft was prepared on the back table packed into screws. we then turned attention to the fibular fracture malunion. There was shortening fracture as well as rotational malunion. Sagittal saw was used to make an osteotomy through previous fracture the distal fibular diaphysis. Length for the fibula was regained with the allograft bone wedge. Reduction was measured and 12 mm bone Wedge was used. The ankle mortise was reduced with distal distraction of the fibula and internal rotation. This was provisionally pinned in place. The distal fibular tibia syndesmosis was denuded of soft tissue with osteotome and rongeur. Bone graft was packed into the site after thorough irrigation. Image intensification confirmed alignment the fibula as well as the syndesmosis and the ankle mortise. Fixation was achieved with a lateral fibular plate, 10 hole length. The fibular fracture was fixed distally with locking screws and proximally with bicortical 3.5 mm screws. Image intensification confirmed reduction of the fibula and placement of the hardware. The syndesmosis was fixed with 3.5 mm fully-threaded cortical screws placed from the fibula across the syndesmosis into tibia. Image intensification confirmed final alignment and placement of the hardware. Good alignment and stability of the Fibula and the syndesmosis noted. Image intensification used to confirm reduction and placement of the hardware. Stress of the ankle performed with good stability of the ankle mortise in all directions. Tourniquet released at that point and bleeding points coagulated electrocautery. Wound thoroughly irrigated with antibiotic solution. Fascia repaired with 00 Vicryl interrupted sut
[2023-11-11] MEDS: ceFAZolin 3 GM/D5W 100 ML 100 ML IVPB (10:57)
--- NOTE | 2023-11-11 11:17 | WPDANESPNB ---
Anes - Peripheral Nerve Block Date/Time: 11/11/23 11:17 I have discussed with the patient/family/POA the placement of a peripheral nerve block for post-operative pain management, including associated risks, benefits, complications, and side effects. Alternative methods of post-operative analgesia were detailed. Questions were solicited and answers provided to the satisfaction of the patient/family/POA. Time-Out: A pre-procedural Time-Out was completed immediately before starting the procedure and confirmed: Patient Identification, Site, Procedure, Patient Position and the Availability of Requisite Equipment. Clinical Indications: Acute post-operative pain management requested by the operative surgeon. Nerve Block Insertion Note Anes-nerve block: posterior fossa sciatic left and adductor canal right Patient position: supine (for adductor canal) and other (right lateral for popliteal) Skin prep: chlorhexidine Needle: 22 gauge, stimulating, insulated echogenic needle. Needle length: 80 mm Technique: nerve stimulation lost at (mA) (for popliteal lost at 0.2) and ultrasound Injectate: bupivacaine 0.5% with epi 5 mcg/ml (20 mL for popliteal, 10 mL for adductor canal (no epi)) Observations: tolerated well Complications: none Procedure start time:: 1041 Procedure end time:: 1047
[2023-11-11] MEDS: LACTATED RINGERS 1,000 ML 30 ML IV CONT ×2 (14:42)
[2023-11-11] MEDS: ONDANSETRON INJ 4 MG/2 ML VIAL IV PUSH (15:38)
== END 2023-11-11 16:30 | disposition home or self-care (01) ==
PROVIDERS: PCP Nurse Practitioner Family; Visit Provider Orthopaedic Surgery
PROC: (CPT 27829; principal; 2023-11-11 11:00)
PROC: (CPT 27829; 2023-11-11 11:00)
DX: S82.831P Other fracture of upper and lower end of right fibula, subsequent encounter for closed fracture with malunion (principal); W00.0XXD Fall on same level due to ice and snow, subsequent encounter; T84.116A Breakdown (mechanical) of internal fixation device of bone of right lower leg, initial encounter; Y83.8 Other surgical procedures as the cause of abnormal reaction of the patient, or of later complication, without mention of misadventure at the time of the procedure; G89.18 Other acute postprocedural pain; F17.210 Nicotine dependence, cigarettes, uncomplicated; F12.90 Cannabis use, unspecified, uncomplicated; E66.01 Morbid (severe) obesity due to excess calories; Z68.42 Body mass index [BMI] 45.0-49.9, adult
CPT/HCPCS: 27829; 27726; 64447; 64445; 99199; A9270; C1713; J0690; J1100; J1170; J1885; J2250; J2405; J2704; J3010; J7120

== ENCOUNTER 2025-01-11 07:59 | Outpatient (CLI) | payer OTHER, SELFPAY ==
--- OUTSIDE RECORDS SUMMARY | 2025-01-11 08:17 | XMS_ITS | Clinical Summary ---
Author Organization [facility] Address [address] [place] [address] Care Team Providers Care Assembler Molded Frames Name Role Phone Unavailable Primary Care Provider Unavailabl e Source Comments [facility],non-owned Affiliates and Associated Physician Practices is amultiple site organization consisting of ambulatory clinics and hospital sitesin [place], [place], [place] and [place]. This disclosure is being madepursuant to the Care Everywhere program and may not contain all information available regarding this patient. Last updated 18.[facility] Allergies No known active allergies Medications * Be aware that medications may not be up to date on this document. Alwaysverify current medications with the patient. docusate sodium (COLACE) 100 MG capsule Take 100 mg by mouth once daily Active Vit-Fe Fumarate-FA ( VITAMIN) 28-0.8 MG tablet Take 1 tablet by mouth once daily Active Active Problems Problem Noted Date Diagnosed Date 39 weeks gestation of 04/04/2021 Encounter for follow-up ultrasound of alyse carmen 03/19/2021 Encounter for anatomic survey 02/07/2021 Overview (02/07/2021): A+, Negative, Immune, Rpr-NR, Hbsag-NR, HIV-NR H/h/p: 11.9, 37.0, 257 CMV & Parvo- Immune Pt declined genetic testing. Supervision of normal first 02/07/2021 BMI 45.0-49.9, adult 02/07/2021 Social History Tobacco Use Types Packs/Day Years Used Date Smoking Tobacco: Never Assessed Comments No Sex and Gender Information Value Date Recorded Sex Assigned at Not on file Legal Sex Female 2:20 PM CDT Gender Identity Not on file Sexual Orientation Not on file Plan of Treatment Health Maintenance Due Date Last Done Comments HIV SCREENING 09/23/2011 HEPATITIS C SCREENING 09/18/2014 DTAP/TDAP/TD VACCINES (1 - Tdap) 09/23/2015 HEPATITIS B VACCINE (1 of 3 - 19+ 3-dose series) 09/23/2015 HPV VACCINE (1 - 3-dose SCDM series) 09/23/2023 COVID-19 VACCINE (1 - 2023-2 5 season) 2024 DEPRESSION SCREENING 05/24/2024 INFLUENZA VACCINE (#1) 2025 ZOSTER VACCINE (1 of 2) 2046 HIB VACCINE Aged Out No longer eligi ble based on patient's age to complete this topic MENINGOCOCCAL (Group B) VACC INE SHARED DECISION-MAKING Aged Out No longer eligibl e based on patient's age to complete this topic MENINGOCOCCAL GROUPS A/C/Y/W VACCINE Aged Out No longer eligible b ased on patient's age to complete this topic PNEUMOCOCCAL VACCINE Aged Out No long er eligible based on patient's age to complete this topic [place] [address] [address]
[2025-01-11 08:30] LABS: Hematocrit 44.6 % (37.0-47.0); Hemoglobin 14.8 g/dL (12.0-15.0); Mean Corpuscular HGB Conc 33.2 g/dl (32-36); Mean Corpuscular Hemoglobin 28.4 pg (26-34); Mean Corpuscular Volume 85.4 fl (80-100); Platelet Count Result 284 k/mm3 (150-375); Red Blood Count 5.22 M/mm3 (4.2-5.4); White Blood Count 5.6 K/mm3 (4.5-10.0)
== END 2025-01-11 08:00 | disposition home or self-care (01) ==
LOC: ANHSURGERY 08:04
PROVIDERS: Visit Provider Obstetrics & Gynecology
DX: Z30.09 Encounter for other general counseling and advice on contraception (principal)
CPT/HCPCS: 36415; 85027

== ENCOUNTER 2025-01-18 01:09 | Day surgery (SDC) | payer OTHER, SELFPAY ==
--- OUTSIDE RECORDS SUMMARY | 2004-08-20 05:15 | XMS_ITS | Continuity of Care Document ---
Author Organization [facility] Address [address] [place] [address] [address] [place] [address] Phone Care Team Providers Care Lost Charge Card Clerk Name Role Phone Rojas OD, Andres Unavailable Unavailable Advance Directives Directive Yes / No Effective Date File Name No Information Encounters Encounter Description Practice Location Reason(s) For Visit Diagnoses Date Provider Providers Copied on Encounter [facility], [address] [place] [address] [address], [place], [place], [id number], [place] tel:[phone] [facility] No Information Mar-3 0-200 5 Rojas OD Andres. [address] , [address], [place], [address], [place]. tel:[phone] Family History Family Member Type Diagnosis Age At Onset No Information Payers Payer name Insurance type Covered alliance party ID Authoriza tion(s) No Information Social History Type Description Quantity Date Captured Comments Sex Female Smoking Status No Information Chief Complaint And Reason For Visit No Information Reason For Referral Reason For Referral No Information History Of Present Illness Encounter Date Complaint History Of Prese nt Illness No Information Functional Status Date Functional Assessmen t No Information Instructions Date Instruction Additional Infor mation No Information Assessments Type Assessment Date No Information Patient Care Teams Name Effective Dates (start - stop) Status Members No Information
[2025-01-09 09:56] VITALS: BMI 50.2
--- NOTE | 2025-01-09 10:08 | SUR.PREOP ---
Report to the Outpatient Waiting Room, entrance under the green pavilion located off [facility], at time 0630 on date 01/18/25. Planned Procedure Time: 0830.? Time changes happen often and if your time is changed the preop area will call you the afternoon before. - You and your visitor will be asked to self-screen and do not enter if you have any COVID symptoms. Please call surgeon if you need to reschedule. - A mask is optional within the hospital at this time. Patients may have clear liquids (water, carbonated beverages, clear teas, apple juice) until 3 hours prior to surgery with a maximum of 20 ounces. - No food from midnight until time of surgery and no smoking, or chewing tobacco (or any form of nicotine). No chewing gum, candy or mints. . Take only the following medications with a SIP of water on the morning of surgery: N/A DO NOT STOP ANY OF YOUR OTHER PRESCRIPTION MEDICATIONS PRIOR TO SURGERY EXCEPT THE FOLLOWING Hold all vitamins and supplements for 3 days per anesthesiologist. Medications to discontinue per physician N/A Date to take last dose N/A Please no make-up, nail kinyarwanda, hairspray, perfume, deodorant, or body powder the day of surgery.? No jewelry (including any body piercings) or valuables the day of surgery, leave them at home.? Please take a shower or bath the night before, or the morning of, surgery with an antibacterial soap.? Wear comfortable, loose fitting clothing.? Children are encouraged to wear pajamas. - Jewelry must be removed prior to entering the operating room.? Rings and piercings that are not removed may be cut off. - The hospital will not accept responsibility for valuables.? - Please leave all valuables, including medications, at home the day of surgery. If you are going home after surgery, a licensed drivers' cash clerk must drive you home.? - NO public transportation without another adult if you receive anesthesia. - We recommend that an adult stay with you for 24 hours following discharge. - We also recommend that you do not drive, make important decision, drink alcoholic beverages, or take any drugs that were not prescribed by your health care provider for at least 24 hours after your discharge time. Follow any additional instructions given to you from your surgeon. Telephone instructions given to JOANIE MORATAYA and asked if any additional questions and then verbalized understanding. Patient advised to call surgeon office or pre surgery nurse liaison [phone] if any additional questions.
--- NOTE | 2025-01-16 21:06 | P.HP_ITS ---
H&P: HPI History of Present Illness Date/Time: 01/16/25 21:06 21-year-old 1 para 100 female presents permanent sterilization. Declines non permanent reversible methods. We have discussed the permanence failure rate increased risk of ectopic regret. Strongly desires to proceed. Chief Complaint: Desires sterilization Review of Systems Review of Systems: All systems reviewed & are unremarkable except as noted in HPI and below PMFSH Past Medical History Medical History Peroneal tendinitis of right lower leg Depression Pre-diabetes 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 Acute disruption of syndesmosis of ankle joint Anxiety Surgical History Surgical History History of foot surgery (06/24/23) x 2 Family History Family History Grandparent Diabetes mellitus paternal grandmother Other No pertinent family history Social History Social History Social History: caffeine use Smoking packs per day: 0 Smoking cigarettes per day: 0.0 Years smoked: 10 Smoking pack-years: 0.00 Smoking status: Smoker, status unknown Tobacco type: cigarettes Second hand tobacco smoke exposure: No Additional smoking assessment comments: pt smokes when she drinks, once in a while every couple of weeks Alcohol intake: current Drinks per week: 3 Alcohol use details: PT WILL HAVE A FEW DRINKS EVERY COUPLE OF WEEKS Substance use: current Substance use type: marijuana Other substance usage details: every night Last use: 10-31-23 Do You Feel Safe in your Home?: Yes Lack of Transportation: No Lack of Food: Never True Current Housing: I Have Housing Concerned About Future Housing: No Difficulty Paying Gas/Electric Bills: No Difficulty Paying for Meds: No Currently Unemployed: No Education: High School Diploma/GED Difficulty w/ Childcare or Family Care: No Living arrangements: with family Occupation/Education: unemployed Additional occupation/education comments: [employer] Gender identity (if verbalized by the patient): Female Sexual Orientation (if Verbalized by the Patient): Straight or Heterosexual Spiritual care concerns: No Meds Home Medications and Allergies Home Medications ?Medication ?Instructions ?Recorded ?Confirmed ?Type ibuprofen 800 mg tablet 800 mg PO TID PRN pain #30 t abs 11/11/23 01/09/25 Rx Allergies Allergy/AdvReac Type Severity Reaction Status Date / Time No Known Allergies Allergy Verified 01/09/25 09:58 Exam Const: General: cooperative Resp: Effort & Inspection: normal respiratory effort Auscultation: clear to auscultation bilaterally Cardio: Rate: regular rate Rhythm: regular rhythm GI: Inspection: normal to inspection Auscultation: normal bowel sounds : External Female Exam: normal external appearance Speculum Exam - Vagina: normal appearance of the vagina Speculum Exam - Cervix: normal appearance of the cervix Bimanual exam- vagina & uterus: normal bimanual exam Bimanual Exam- Adnexa, other: normal adnexae Assessment and Plan Assessment and plan (1) Encounter for female sterilization procedure: Code(s): Z30.2 - Encounter for sterilization Status: Acute Assessment and Plan: Procedure laparoscopic bilateral salpingectomy
[2025-01-18] VITALS (8 sets, daily range): BP systolic 112–149; BP diastolic 71–91; PULSE 82–136; RESP 12–16; TEMP 36.3; O2SAT 99–100
[2025-01-18] MEDS: KETOROLAC 15 MG/ML VIAL (*BKC) IV PUSH (07:59)
[2025-01-18] MEDS: ACETAMINOPHEN 500 MG TABLET 1000 MG PO (07:59)
[2025-01-18] MEDS: SCOPOLAMINE 1 MG PATCH 1 PATCH TRANSDERM (08:20)
--- NOTE | 2025-01-18 08:20 | WPDHPUPDATE1 ---
History and Physical Update Update Date/Time: 01/18/25 08:20 History and Physical has been reviewed, including an updated exam of the patient. There are NO changes in the patient's condition. Risks, benefits, and alternatives have been discussed and questions answered. Patient agrees to proceed with procedure.
--- NOTE | 2025-01-18 09:14 | P.PNAN_ITS ---
Anes - Initial Pre Proc Eval Procedure: Operation Date: 01/18/25 09:15 Proposed Procedures p Bilateral Laparoscopic Salpingectomy - Sonny Byrd MD Date/Time: 01/18/25 09:14 Surgeon: Sonny Byrd MD Pre Op Diagnosis: desires sterilization Patient Data Age: 29 Gender: F Height: 1.75 m Weight: 158.9 kg Last Vital Signs Temp 36.3 C L 01/18/25 08:00 Pulse 94 01/18/25 08:00 Resp 16 01/18/25 08:00 BP 135/85 01/18/25 08:00 Pulse Ox 99 01/18/25 08:00 O2 Del Method Room Air 01/18/25 08:00 Allergies Allergy/AdvReac Type Severity Reaction Status Date / Time No Known Allergies Allergy Verified 01/18/25 07:58 Home Medications ?Medication ?Instructions ?Recorded ?Confirmed ?Type ibuprofen 800 mg tablet 800 mg PO TID PRN pain #30 t abs 11/11/23 01/09/25 Rx Patient hx anesthesia problems: post op nausea/vomiting Family hx anesthesia problems: none Results Review: All pre-operative results and documents have been reviewed as part of the pre- operative evaluation. [facility] Past Medical History Medical History Peroneal tendinitis of right lower leg Depression Pre-diabetes 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 Acute disruption of syndesmosis of ankle joint Anxiety Surgical History Surgical History History of foot surgery (06/24/23) x 2 Family History Family History Grandparent Diabetes mellitus paternal grandmother Other No pertinent family history Social History Social History Social History: caffeine use Smoking packs per day: 0 Smoking cigarettes per day: 0.0 Years smoked: 10 Smoking pack-years: 0.00 Smoking status: Smoker, status unknown Tobacco type: cigarettes Second hand tobacco smoke exposure: No Additional smoking assessment comments: pt smokes when she drinks, once in a while every couple of weeks Alcohol intake: current Drinks per week: 3 Alcohol use details: PT WILL HAVE A FEW DRINKS EVERY COUPLE OF WEEKS Substance use: current Substance use type: marijuana Other substance usage details: every night Last use: 6 Do You Feel Safe in your Home?: Yes Lack of Transportation: No Lack of Food: Never True Current Housing: I Have Housing Concerned About Future Housing: No Difficulty Paying Gas/Electric Bills: No Difficulty Paying for Meds: No Currently Unemployed: No Education: High School Diploma/GED Difficulty w/ Childcare or Family Care: No Living arrangements: with family Occupation/Education: unemployed Additional occupation/education comments: [employer]il [employer] Gender identity (if verbalized by the patient): Female Sexual Orientation (if Verbalized by the Patient): Straight or Heterosexual Spiritual care concerns: No Anes - Eval Final PreProcedure Day of Procedure 01/18/25 09:14 Patient weight: super morbidly obese Heart: regular rate and rhythm Lungs: decreased breath sounds Airway: Mallampati scale class II Neurological: alert and oriented Last oral intake: >/= 8 hours ASA classification: III Emergent: no Anesthetic plan: proceed Anesthesia type and monitoring: general ETT and standard monitoring Results Review: All pre-operative results and documents have been reviewed as part of the pre- operative evaluation. Informed Consent: The patient's anesthetic plan and its attendant risks and benefits were discussed with the patient/family/POA. Questions were solicited and answers provided to the satisfaction of the patient/family/POA.
--- NOTE | 2025-01-18 10:18 | S_PTH ---
PATIENT: Cata Ho LOC: [facility] U#:[id number] AGE/SX: 29/ ROOM: RE01/18/[address]: Sonny Byrd MD : 1995 BED: DIS: 01/18/2025 SPEC #: [id number] RECD: 01/18/25 11:38 STATUS: SERENITY REQ #: [id number] DRISS: 01/18/25 10:[address]: Sonny Byrd DEPT: [facility] Surgical RECD BY: Gricelda Gutierrez ENTERED: 01/18/25 11:39 SP TYPE: Surgical OTHR DR: SWITCH INSPECTOR PHYSICIAN Tissues: A - Fallopian Tube Bilateral Procedures: Gross and Microscopic Level 2 Hematoxylin and Eosin Stain
--- NOTE | 2025-01-18 10:24 | W.PM.PROC2 ---
Procedure Note - Detailed Date of Procedure 01/18/25 Pre-op Diagnosis desires sterilization Post-op Diagnosis Same Procedure Performed Laparoscopic bilateral salpingectomy Surgeon Sonny Byrd MD Anesthesia General Findings Uterus tubes and ovaries without abnormality. Description of Procedure Patient prepped and draped usual manner for this procedure. Cervical instruments were placed for uterine mobility throughout the case. Initial camera port was placed under direct visualization and no evidence of bleeding or trauma to bowel. Gas was insufflated and right and left lower quadrant trocars were placed under direct visualization. Patient was placed in Trendelenburg position and using the LigaSure instrument bilaterally the mesial salpinx was cauterized and cut and tubes removed without difficulty. There was no bleeding throughout the case. The revaluation of all the bowel underneath with the initial trocar had been placed was evaluated with no evidence of bleeding or bowel damage. Once this was undertaken, gas was allowed to escape trocars removed and incisions were closed using 4-0 Monocryl. Patient was sent to recovery room in stable condition. Estimated Blood Loss 10 Drains No Packing No Pathology Yes Complications No immediate complications Condition Stable Disposition PACU [facility] Billing Surgery - Charge Forward: Surgery Billing
[2025-01-18] MEDS: LACTATED RINGERS 1,000 ML 30 ML IV CONT ×2 (10:35)
[2025-01-18] MEDS: fentaNYL CITRATE INJ (*CRX) 100 MCG/2 ML VIAL 25 MCG IV PUSH ×3 (10:49→11:06)
[2025-01-18] MEDS: oxyCODONE HCL (*CRX) 5 MG TAB IR PO (11:35)
== END 2025-01-18 12:36 | disposition home or self-care (01) ==
PROVIDERS: Visit Provider Obstetrics & Gynecology
PROC: (CPT 49320; principal; 2025-01-18 09:15)
DX: Z30.2 Encounter for sterilization (principal); G89.18 Other acute postprocedural pain; F32.A Depression, unspecified; R73.03 Prediabetes; F41.9 Anxiety disorder, unspecified; F17.210 Nicotine dependence, cigarettes, uncomplicated; F12.90 Cannabis use, unspecified, uncomplicated; E66.01 Morbid (severe) obesity due to excess calories; Z68.43 Body mass index [BMI] 50.0-59.9, adult; Z79.1 Long term (current) use of non-steroidal anti-inflammatories (NSAID); Z98.890 Other specified postprocedural states
CPT/HCPCS: 58661; 88302; A9270; J1100; J1885; J2250; J2405; J2704; J3010; J7120